=== PATIENT | female | born 1975 | race Caucasian/White ===

== ENCOUNTER 2016-09-29 20:15 | Emergency (ER) | payer SELFPAY ==
[~2016-09-29] VITALS: Wt 76.0 kg
[2016-09-29] MEDS ORDERED: KETOROLAC 30 MG INJ IM STA (23:19)
[2016-09-29] MEDS ORDERED: DIPHENHYDRAMINE 25 MG CAP PO ONE (23:30)
[2016-09-29] MEDS ORDERED: METOCLOPRAMIDE 10 MG TAB PO ONE (23:30)
[2016-09-30] MEDS ORDERED: IBUP400T22 PO (02:05)
[2016-09-30] MEDS ORDERED: BEN25 PO (02:05)
[2016-09-30 02:19] VITALS: BP 132/78; PULSE 57; RESP 20; TEMP 96.3
--- NOTE | 2016-09-30 06:23 | ERD ---
ER Documentation Chief Complaint Date/Time DATE: 09/30/16 TIME: 06:15 Chief Complaint GUPTA x1 week, sinus pain HPI This is a 41-year-old female presents emergency department for headache and sinus pain and pressure 2 weeks. Patient states she has had similar headaches in the past however pain worsened today. Headache is frontal and rates pain 10/ 10. Usually Patient reports nasal congestion, sneezing and rhinorrhea. No fevers or chills. Patient states she was diagnosed with sinusitis before about a year ago. Has not taken any medications at home. Denies any nausea, vomiting or diarrhea. No cough, shortness of breath or difficulty breathing. No loss of consciousness dizziness, weakness or fatigue. Patient was also recently seen by her circulation representative and was supposed to start wearing glasses. Patient states when she wore her glasses her headache worsened. Patient has not been wearing her glasses since. No dysuria or hematuria. ROS All systems reviewed and are negative except as per history of present illness. Medications Home Meds Active Scripts Ibuprofen* (Motrin*) 400 Mg Tab, 400 MG PO Q6, #15 TAB Prov:TAMERA GROVER NP 09/30/16 Diphenhydramine Hcl* (Benadryl*) 25 Mg Cap, 25 MG PO Q6, #15 CAP Prov:TAMERA GROVER NP 09/30/16 Allergies Allergies: Coded Allergies: Penicillins (Verified Allergy, Unknown, RASH/DIARRHEA, 03/10/14) PMhx/Soc History of Surgery: No Anesthesia Reaction: No Hx Neurological Disorder: No Hx Respiratory Disorders: No Hx Cardiac Disorders: No Hx Psychiatric Problems: No Hx Miscellaneous Medical Probl: No Hx Alcohol Use: No Hx Substance Use: No Hx Tobacco Use: No Smoking Status: Never smoker Physical Exam Vitals Vital Signs Date Time Temp Pulse Resp B/P Pulse Ox O2 Delivery O2 Flow Rate FiO2 09/30/16 02:19 96.3 57 20 132/78 100 Room Air 09/29/16 20:46 98.5 64 20 137/63 100 Physical Exam Const: No acute distress, alert Head: Atraumatic Eyes: Normal Conjunctiva ENT: Normal External Ears, Nose and Mouth. Neck: Full range of motion..~ No meningismus. Resp: Clear to auscultation bilaterally Cardio: Regular rate and rhythm, no murmurs Abd: Soft, non tender, non distended. Normal bowel sounds Skin: No petechiae or rashes Back: No midline or flank tenderness Ext: No cyanosis, or edema Neur: Awake and alert. Strength equal bilaterally to upper and lower extremities. No abnormal gait. Psych: Normal Mood and Affect Results 24 hrs Current Medications Medications (Trade) Dose Ordered Sig/Milagro Route PRN Reason Start Time Stop Time Status Last Admin Dose Admin Ketorolac Tromethamine (Toradol) 30 mg ONCE STAT IM 09/29/16 23:19 09/29/16 23:22 DC 09/30/16 00:07 Diphenhydramine HCl (Benadryl) 25 mg ONCE ONCE PO 09/29/16 23:30 09/29/16 23:31 DC 09/30/16 00:06 Metoclopramide HCl (Reglan) 10 mg ONCE ONCE PO 09/29/16 23:30 09/29/16 23:31 DC 09/30/16 00:06 Procedures/MDM MDM: 41-year-old female presents emergency department for frontal headache and sinus pressure and pain 2 weeks. Patient states she has had similar pain in the past and pain is worsened today. No fevers or chills. Patient reports rhinorrhea, rhinitis and nasal congestion. Patient rates pain 10/10. Patient given Reglan, Toradol and Benadryl on the ED. Upon reassessment, patient's pain has improved significantly. Patient now requesting to go home. No neuro deficits. No weakness or fatigue. No dizziness. Denies this being the worst headache she is ever had. No indication for imaging at this time. Remains hemodynamically stable. Differential diagnosis includes but not limited tension headache, sinus headache , sinusitis, migraine headache, CVA, TIA, mass or cerebral hemorrhage. Patient is appropriate for outpatient management will be given prescription for ibuprofen and Benadryl. Instructed patient to follow-up with primary care provider in the next 2-3 days for reassessment. Return to ED for any high fever , chest pain, difficulty breathing, shortness breath, wheezing, vomiting, diarrhea, abdominal pain or any new or worsening symptoms. Patient verbalizes understanding. All questions answered at discharge. Departure Diagnosis: Primary Impression: Headache Headache type: unspecified Headache chronicity pattern: unspecified pattern Intractability: not intractable Qualified Code: R51 - Nonintractable headache, unspecified chronicity pattern, unspecified headache type Condition: Stable Patient Instructions: Headache, Unspecified [facility] Usted se gupta hecho un examen mdico de control que le indica que no est en noa condicin que requiera tratamiento urgente en el Departamento de Emergencia. Un estudio ms profundo y el tratamiento de danielle condicin pueden esperar sin ningn riesgo hasta que usted sea atendida/o en el consultorio de danielle mdico o noa cl lay. Es responsabilidad suya arreglar noa ashley para el seguimiento del joe. MANEJO DE CONDICIONES NO URGENTES EN EL FUTURO 1) Si usted tiene un mdico de atencin primaria: Usted debera llamar a danielle mdico de atencin primaria antes de venir al departamento de emergencia. Despus de las horas de consultorio, danielle doctor o danielle asociado/a est disponible por telfono. El mdico o enfermero de ally en el servicio telefnico puede asesorarle por jannette medio para atender el problema, o joe contrario se puede programar noa ashley. 2) Si usted no tiene un mdico de atencin primaria: Llame al mdico o clnica de referencia que aparece abajo preston las horas de consultorio para hacer noa ashley para que le vean. CLINICAS: [facility] [phone] [facility] [phone] [facility] [phone] [address] [facility] [phone] [address] [facility] [phone] [address] [facility]. [phone] [address] [facility] () Usted se gupta hecho un examen mdico de control que le indica que no est en noa condicin que requiera tratamiento urgente en el Departamento de Emergencia. Un estudio ms profundo y el tratamiento de danielle condicin pueden esperar sin ningn riesgo hasta que usted sea atendida/o en el consultorio de danielle mdico o noa cl lay. Es responsabilidad suya arreglar noa ashley para el seguimiento del joe. MANEJO DE CONDICIONES NO URGENTES EN EL FUTURO 1) Si usted tiene un mdico de atencin primaria: Usted debera llamar a danielle mdico de atencin primaria antes de venir al departamento de emergencia. Despus de las horas de consultorio, danielle doctor o danielle asociado/a est disponible por telfono. El mdico o enfermero de ally en el servicio telefnico puede asesorarle por jannette medio para atender el problema, o joe contrario se puede programar noa ashley. 2) Si usted no tiene un mdico de atencin primaria: Llame al mdico o condado institucions de referencia que aparece abajo preston las horas de consultorio para hacer noa ashley para que le vean. SI USTED NO PUEDE PAGAR PARA GLENN UN MEDICO puede ir a: [facility] [address] [place] [address] [facility] [address] [place] [address] [facility] [address] [place] [address] PARA TY [facility] [address] [place], [place] [id number] Additional Instructions: Llame al doctor MAANA y sita noa ASHLEY PARA DENTRO DE 2-3 TAVERA.Dgale a la secretaria que nosotros le instruimos hacer esta ashley.Avise o llame si danielle condicin se empeora antes de la ashley. Regresa aqui si peor o no mejor. Regresar a ED por fiebre germaine, dolor en el pecho, dificultad para respirar, respiracin entrecortada, sibilancias, vmitos, diarrea, dolor abdominal o cualquier sntoma nuevo o que empeora. TAMERA GROVER NP September 30, 2016 06:23
== END 2016-09-30 02:21 | disposition home or self-care (01) ==
LOC: FTE 20:15
DX: R51 Headache (principal)
CPT/HCPCS: 96372; J1885